=== PATIENT | female | born 1985 | race Caucasian/White ===

== ENCOUNTER 2016-08-25 19:07 | Emergency (ER) | payer OTHER ==
[~2016-08-25] VITALS: Ht 139.7 cm; Wt 71.0 kg
[2016-08-25] MEDS ORDERED: ZOFRAN ODT4 MG PO (22:31)
[2016-08-25] MEDS ORDERED: MOTRIN800 MG PO (22:31)
[2016-08-25] MEDS ORDERED: VALIUM5 MG PO (22:32)
[2016-08-25 22:52] VITALS: BP 138/76
== END 2016-08-25 22:52 | disposition home or self-care (01) ==
LOC: EME 19:07
DX: S09.90XA Unspecified injury of head, initial encounter (principal); S06.0X0A Concussion without loss of consciousness, initial encounter; S16.1XXA Strain of muscle, fascia and tendon at neck level, initial encounter; W20.8XXA Other cause of strike by thrown, projected or falling object, initial encounter; Y99.0 Civilian activity done for income or pay
CPT/HCPCS: 70450; 72040; 99281; 99283

== ENCOUNTER 2016-12-11 16:06 | Emergency (ER) | payer OTHER ==
[~2016-12-11] VITALS: Ht 139.7 cm; Wt 71.9 kg
[~2016-12-11 16:06] MED LIST: MOTRIN800 MG PO; VALIUM5 MG PO; ZOFRAN ODT4 MG PO
[2016-12-11 16:09] VITALS: BP 154/76
[2016-12-11] MEDS ORDERED: MOTRIN800 MG PO (17:26)
[2016-12-11] MEDS ORDERED: NORCO 7.5/321 TABLET PO (17:26)
== END 2016-12-11 17:43 | disposition home or self-care (01) ==
LOC: EME 16:06
DX: M23.91 Unspecified internal derangement of right knee (principal); M76.51 Patellar tendinitis, right knee; Z72.0 Tobacco use
CPT/HCPCS: 73564; 99281; 99283

== ENCOUNTER 2017-10-28 18:17 | Emergency (ER) | payer OTHER ==
[~2017-10-28] VITALS: Ht 139.7 cm; Wt 75.9 kg
[~2017-10-28 18:17] MED LIST changes: +MEDROL DOSEPAK4 MG PO; +NORCO 7.5/321 TABLET PO; +ROBITUSSIN AC,T10 ML PO; +VENTOLIN HFA18 GM IH
[2017-10-28 21:06] LABS: CHLORIDE 104 mEq/L (99-109); POTASSIUM 3.7 mEq/L (3.7-5.4); SODIUM 138 mEq/L (136-147)
[2017-10-28 21:08] LABS: GLUCOSE 83 mg/dL (70-99)
[2017-10-28 21:11] LABS: CREATININE 0.8 mg/dL (0.6-1.3); GFR ESTIMATE (CALCULATED) > 59 mL/min/
[2017-10-28 21:12] LABS: UREA NITROGEN (BUN) 9 mg/dL (9-23)
[2017-10-28 21:21] LABS: QUANTITATIVE HCG < 4.0 MIU/ML
[2017-10-28 21:22] LABS: HEMATOCRIT 38.8 % (36.0-46.0); HEMOGLOBIN 13.7 G/DL (11.9-15.5); MCHC 35.3 G/DL (30.0-36.0); MCV 87.8 FL (83-99); PLATELET COUNT 353 K/uL (156-360); RBC DIS.WIDTH-CV 12.9 % (11.8-14.6); RBC DIS.WIDTH-SD 41.8 % (39-53); RED BLOOD COUNT 4.42 M/uL (3.80-5.20); WHITE BLOOD COUNT 9.9 K/uL (4.1-10.2)
[2017-10-28 23:10] VITALS: BP 130/92
[2017-10-28] MEDS ORDERED: KEFLEX500 MG PO (23:13)
== END 2017-10-28 23:10 | disposition home or self-care (01) ==
LOC: EME 18:17
PROVIDERS: Physician Assistant
DX: L03.114 Cellulitis of left upper limb (principal)
CPT/HCPCS: 73060; 80048; 84702; 85027; 93971; 99281; 99284